=== PATIENT | female | born 1995 | race Caucasian/White ===

== ENCOUNTER 2018-04-09 23:05 | Emergency (ER) | payer BC ==
--- NOTE | 2018-04-09 23:26 | ER Report ---
History and Physical Time Seen By MD: 23:21 Hx. of Stated Complaint: patient c/o feeling sick todAY, had couple of emesis with last one being bloody, and couple of episodes of diarrhea HPI/ROS CHIEF COMPLAINT: vomiting with some blood HISTORY OF PRESENT ILLNESS: This is a 23 year old female. She has been sick today with vomiting. The last two times with some blood. Has had diarrhea, but no melena or blood in stool. No stomach pain. No other bleeding such as bruising, blood in urine or stool, or nosebleeds recently. No blood thinners. No history of ulcers or reflux. No fevers. No cough or runny nose or sore throat. Feels like she may be a little dehydrated. Allergies: Coded Allergies: No Known Drug Allergies (Unverified , 04/09/18) Home Meds Active Scripts Ondansetron 4 Mg Odt (ONDANSETRON 4 MG ODT) 4 Mg Tab.rapdis, 4 MG PO Q6H PRN for NAUSEA/VOMITING, #20 TAB 0 Refills Prov:ANAID SHULTZ MD 04/10/18 Reviewed Nurses Notes: Yes Hx Substance Use Disorder: No Constitutional Vital Sign - Last 24 Hours 04/09/18 04/09/18 04/09/18 04/09/18 23:11 23:17 23:20 23:30 Temp 98.4 Pulse 98 98 Resp 18 B/P (MAP) 106/66 (79) 106/66 114/87 (96) Pulse Ox 96 97 O2 Delivery Room Air 04/09/18 04/09/18 04/10/18 04/10/18 23:35 23:50 00:04 00:20 Pulse 100 105 94 B/P (MAP) 124/71 (88) Pulse Ox 87 85 95 O2 Delivery Room Air 04/10/18 04/10/18 04/10/18 04/10/18 00:25 00:30 00:40 00:45 Pulse 99 97 95 B/P (MAP) 110/71 (84) Pulse Ox 97 97 94 O2 Delivery Room Air 04/10/18 01:00 B/P (MAP) 118/67 (84) Intake and Output 04/09/18 04/09/18 04/10/18 15:00 23:00 07:00 Intake Total 1000 ml Balance 1000 ml Physical Exam General Appearance: Alert, no distress. [ ] Eyes: Pupils equal and round no injection. ENT: Normal oral mucosa. Normal posterior oropharynx. Mucous membranes a little dry. Neck: Neck is supple and non tender. Respiratory: Chest is non tender, lungs are clear to auscultation. Cardiac: regular rate and rhythm Gastrointestinal: Abdomen is soft and non tender, no masses, bowel sounds normal. Musculoskeletal: Extremities have full range of motion. Skin: No rashes or lesions. DIFFERENTIAL DIAGNOSIS: After history and physical exam differential diagnosis was considered for vomiting with dehydrated, two episodes of hematemesis. Likely some surface vessel bleeding from vomiting Medical Decision Making Data Points Result Diagram: 04/09/18 2319 04/09/18 2319 Laboratory Hematology Test 04/09/18 23:10 04/09/18 23:19 Urine Color Yellow Urine Clarity Slightly-cloudy Urine pH 5.0 pH (4.8-9.5) Urine Specific [place] 1.026 Urine Protein 30 mg/dL (NEGATIVE) Urine Glucose (UA) Negative mg/dL (NEGATIVE) Urine Ketones 20 mg/dL (NEGATIVE) Urine Blood Negative (NEGATIVE) Urine Nitrite Negative (NEGATIVE) Urine Bilirubin Negative (NEGATIVE) Urine Urobilinogen Negative mg/dL (0.2-1.9) Urine Leukocyte Esterase Negative (NEGATIVE) Urine RBC 2 /HPF (0-2/HPF) Urine WBC 3 /HPF (0-5/HPF) Urine Squamous Epithelial Cells Many /LPF (</=FEW) Urine Bacteria Negative /HPF (NONE-FEW) Urine Mucus Few /HPF (NONE-FEW) Red Blood Count 5.39 M/uL (4.17-5.56) Mean Corpuscular Volume 90.4 fL (80.0-96.0) Mean Corpuscular Hemoglobin 30.6 pg (26.0-33.0) Mean Corpuscular Hemoglobin Concent 33.8 g/dL (32.0-36.0) Red Cell Distribution Width 13.2 % (11.5-14.5) Mean Platelet Volume 9.9 fL (7.2-11.1) Neutrophils (%) (Auto) 89.0 % (39.4-72.5) Lymphocytes (%) (Auto) 4.9 % (17.6-49.6) Monocytes (%) (Auto) 5.0 % (4.1-12.4) Eosinophils (%) (Auto) 0.7 % (0.4-6.7) Basophils (%) (Auto) 0.4 % (0.3-1.4) Nucleated RBC Relative Count (auto) 0.6 /100WBC Neutrophils # (Auto) 14.0 K/uL (2.0-7.4) Lymphocytes # (Auto) 0.8 K/uL (1.3-3.6) Monocytes # (Auto) 0.8 K/uL (0.3-1.0) Eosinophils # (Auto) 0.1 K/uL (0.0-0.5) Basophils # (Auto) 0.1 K/uL (0.0-0.1) Nucleated RBC Absolute Count (auto) 0.09 K/uL Prothrombin Time 14.1 seconds (12.0-14.4) Prothromb Time International Ratio 1.08 Activated Partial Thromboplast Time 25 seconds (23-35) Sodium Level 139 mmol/L (137-145) Potassium Level 3.9 mmol/L (3.5-5.0) Chloride Level 106 mmol/L (98-107) Carbon Dioxide Level 22 mmol/L (22-31) Blood Urea Nitrogen 22 mg/dl (7-18) Creatinine 0.80 mg/dl (0.52-1.04) Glomerular Filtration Rate Calc > 60.0 Random Glucose 109 mg/dl (75-110) Calcium Level 9.5 mg/dl (8.4-10.2) Total Bilirubin 0.7 mg/dl (0.2-1.3) Aspartate Amino Transf (AST/SGOT) 33 U/L (0-35) Alanine Aminotransferase (ALT/SGPT) 27 U/L (0-56) Alkaline Phosphatase 82 U/L (0-126) Total Protein 8.3 g/dl (6.3-8.2) Albumin 4.9 g/dl (3.5-5.0) Amylase Level 84 U/L (0-110) Lipase 86 U/L (23-300) Chemistry Test 04/09/18 23:10 04/09/18 23:19 Urine Color Yellow Urine Clarity Slightly-cloudy Urine pH 5.0 pH (4.8-9.5) Urine Specific [place] 1.026 Urine Protein 30 mg/dL (NEGATIVE) Urine Glucose (UA) Negative mg/dL (NEGATIVE) Urine Ketones 20 mg/dL (NEGATIVE) Urine Blood Negative (NEGATIVE) Urine Nitrite Negative (NEGATIVE) Urine Bilirubin Negative (NEGATIVE) Urine Urobilinogen Negative mg/dL (0.2-1.9) Urine Leukocyte Esterase Negative (NEGATIVE) Urine RBC 2 /HPF (0-2/HPF) Urine WBC 3 /HPF (0-5/HPF) Urine Squamous Epithelial Cells Many /LPF (</=FEW) Urine Bacteria Negative /HPF (NONE-FEW) Urine Mucus Few /HPF (NONE-FEW) White Blood Count 15.7 k/uL (4.5-11.0) Red Blood Count 5.39 M/uL (4.17-5.56) Hemoglobin 16.5 g/dL (12.0-16.0) Hematocrit 48.7 % (34.0-47.0) Mean Corpuscular Volume 90.4 fL (80.0-96.0) Mean Corpuscular Hemoglobin 30.6 pg (26.0-33.0) Mean Corpuscular Hemoglobin Concent 33.8 g/dL (32.0-36.0) Red Cell Distribution Width 13.2 % (11.5-14.5) Platelet Count 242 K/uL (150-450) Mean Platelet Volume 9.9 fL (7.2-11.1) Neutrophils (%) (Auto) 89.0 % (39.4-72.5) Lymphocytes (%) (Auto) 4.9 % (17.6-49.6) Monocytes (%) (Auto) 5.0 % (4.1-12.4) Eosinophils (%) (Auto) 0.7 % (0.4-6.7) Basophils (%) (Auto) 0.4 % (0.3-1.4) Nucleated RBC Relative Count (auto) 0.6 /100WBC Neutrophils # (Auto) 14.0 K/uL (2.0-7.4) Lymphocytes # (Auto) 0.8 K/uL (1.3-3.6) Monocytes # (Auto) 0.8 K/uL (0.3-1.0) Eosinophils # (Auto) 0.1 K/uL (0.0-0.5) Basophils # (Auto) 0.1 K/uL (0.0-0.1) Nucleated RBC Absolute Count (auto) 0.09 K/uL Prothrombin Time 14.1 seconds (12.0-14.4) Prothromb Time International Ratio 1.08 Activated Partial Thromboplast Time 25 seconds (23-35) Glomerular Filtration Rate Calc > 60.0 Calcium Level 9.5 mg/dl (8.4-10.2) Total Bilirubin 0.7 mg/dl (0.2-1.3) Aspartate Amino Transf (AST/SGOT) 33 U/L (0-35) Alanine Aminotransferase (ALT/SGPT) 27 U/L (0-56) Alkaline Phosphatase 82 U/L (0-126) Total Protein 8.3 g/dl (6.3-8.2) Albumin 4.9 g/dl (3.5-5.0) Amylase Level 84 U/L (0-110) Lipase 86 U/L (23-300) Coagulation Test 04/09/18 23:19 Prothrombin Time 14.1 seconds Prothromb Time International Ratio 1.08 Activated Partial Thromboplast Time 25 seconds Urinalysis Test 04/09/18 23:10 Urine Color Yellow Urine Clarity Slightly-cloudy Urine pH 5.0 pH (4.8-9.5) Urine Specific [place] 1.026 Urine Protein 30 mg/dL (NEGATIVE) Urine Glucose (UA) Negative mg/dL (NEGATIVE) Urine Ketones 20 mg/dL (NEGATIVE) Urine Blood Negative (NEGATIVE) Urine Nitrite Negative (NEGATIVE) Urine Bilirubin Negative (NEGATIVE) Urine Urobilinogen Negative mg/dL (0.2-1.9) Urine Leukocyte Esterase Negative (NEGATIVE) Urine RBC 2 /HPF (0-2/HPF) Urine WBC 3 /HPF (0-5/HPF) Urine Squamous Epithelial Cells Many /LPF (</=FEW) Urine Bacteria Negative /HPF (NONE-FEW) Urine Mucus Few /HPF (NONE-FEW) EKG/Imaging Imaging OBSTRUCTION SERIES: Indication: Epigastric pain and vomiting. Technique: Supine and erect views of the abdomen and a frontal view of the chest were obtained. Comparison: None available. Findings: The intestinal gas pattern is unremarkable. There is no evidence of obstruction, dilatation, or free air. No suspicious calcifications are identified. An IUD is present in the pelvic midline. The skeletal and soft tissue structures appear unremarkable. The chest film demonstrates well-expanded and clear lungs. The heart and mediastinal contours are within normal limits. IMPRESSION: No evidence of obstruction or other acute process. Report Dictated By: Damon Larios MD at 04/10/2018 12:29 AM ED Course/Re-evaluation Clinical Indication for ER IV: Hydration, IV Access ED Course Labs unremarkable other than mild dehydration. [place] better with Zofran and a liter of normal saline. Decision to Disposition Date: Apr 10, 2018 Decision to Disposition Time: 00:51 Depart Departure Latest Vital Signs Vital Signs Date Time Temp Pulse Resp B/P (MAP) Pulse Ox O2 Delivery O2 Flow Rate FiO2 04/10/18 01:00 118/67 (84) 04/10/18 00:45 95 94 04/10/18 00:40 Room Air 04/09/18 23:17 98.4 18 Impression: Primary Impression: Nausea & vomiting Additional Impression: Hematemesis Condition: Improved Disposition: HOME OR SELF-CARE New Scripts Ondansetron 4 Mg Odt (ONDANSETRON 4 MG ODT) 4 Mg Tab.rapdis 4 MG PO Q6H PRN for NAUSEA/VOMITING, #20 TAB 0 Refills Prov: ANAID SHULTZ MD 04/10/18 Patient Instructions: Acute Nausea and Vomiting (ED) Additional Instructions: Take Zofran 4mg, one every 6 hours as needed for nausea and vomiting. If having abdominal pain and repeat vomiting with blood, follow-up with your doctor for further evaluation and arrangement for endoscopy would be recommended. Problem Qualifiers Primary Impression: Nausea & vomiting Vomiting type: unspecified Vomiting Intractability: non-intractable Qualified Codes: R11.2 - Nausea with vomiting, unspecified Additional Impression: Hematemesis Nausea presence: with nausea Qualified Codes: K92.0 - Hematemesis ANAID SHULTZ MD Apr 09, 2018 23:26
[2018-04-09] MEDS ORDERED: ONDANSETRON 4 MG/2 ML VIAL IVP ONE (23:35)
[2018-04-09] MEDS ORDERED: NS(*) 0.9% 1000 ML BAG 1,000 ML IV ONE (23:35)
[2018-04-09 23:46] LABS: INR 1.08
[2018-04-09 23:57] LABS: PLATELET COUNT, AUTOMATED 242 K/uL (150-450)
--- NOTE | 2018-04-10 00:40 | RADIOLOGY IMAGING REPORT ---
FACILITY: [facility] PATIENT NAME: Kvng Cruz : 1995 MR: [id number] V: [id number] EXAM DATE: ORDERING PHYSICIAN: ANAID SHULTZ TECHNOLOGIST: Location: [facility] Patient: Kvng Cruz : 1995 Visit/Account:[id number] Date of Sevice: 04/09/2018 OBSTRUCTION SERIES: Indication: Epigastric pain and vomiting. Technique: Supine and erect views of the abdomen and a frontal view of the chest were obtained. Comparison: None available. Findings: The intestinal gas pattern is unremarkable. There is no evidence of obstruction, dilatation , or free air. No suspicious calcifications are identified. An IUD is present in the pelvic midline. The skeletal and soft tissue structures appear unremarkable. The chest film demonstrates well-expanded and clear lungs. The heart and mediastinal contours are wit hin normal limits. IMPRESSION: No evidence of obstruction or other acute process. Report Dictated By: Damon Larios MD at 04/10/2018 12:29 AM Report E-Signed By: Damon Larios MD at 04/10/2018 12:36 AM WSN:[id number]
[2018-04-10] MEDS ORDERED: ONDA4TAB9 PO (00:52)
[2018-04-10] MEDS ORDERED: ONDANSETRON 4 MG ODT TH SL ONE (00:55)
[2018-04-10 01:00] VITALS: BP 118/67
== END 2018-04-10 01:13 | disposition home or self-care (01) ==
LOC: ER 23:29
DX: K92.0 Hematemesis (principal)
CPT/HCPCS: 74022; 81001; 82150; 83690; 85025; 85610; 85730; 96361; 96374; 99284; J2405; J7030; 82040; 82247; 82310; 82374; 82435; 82565; 82947; 84075; 84132; 84155; 84295; 84450; 84460; 84520